=== PATIENT | female | born 1950 | race African-American/Black ===

== ENCOUNTER → 2016-10-03 | Outpatient (CLI) | payer MEDICARE ==
[~2016-10-03] MED LIST: ATOR20TA42 PO; AUGM12TA2 PO; CART240C4 PO; CELL500T PO; COUM5TAB PO; COUM6TAB PO; LABE200T2 PO; LOSA25TA31 PO; MAGN400T PO; POTA-243 PO; PRED5 PO; PROG1CAP PO; SENS60TA PO; TERA10CA3 PO
[2016-10-03 10:45] LABS: AUTOMATED NEUTROPHIL # 4.1 TH/MM3 (1.8-7.7); BASOPHIL % 0.3 % (0.0-2.0); EOSINOPHIL # 0.1 TH/MM3 (0-0.4); EOSINOPHIL % 1.8 % (0.0-4.0); HEMATOCRIT 35.1 % (35.0-46.0); HEMO FLAGS DIFF FINAL; LYMPH % 35.3 % (9.0-44.0); LYMPHOCYTE # 2.8 TH/MM3 (1.0-4.8); MEAN CELL VOLUME 86.3 FL (80.0-100.0); MEAN CORPUSCULAR HEMOGLOBIN 27.7 PG (27.0-34.0); MEAN CORPUSCULAR HGB CONC 32.1 % (32.0-36.0); MONO % 10.6 % (0.0-8.0); PLATELET COUNT 170 TH/MM3 (150-450); RED BLOOD COUNT 4.07 MIL/MM3 (4.00-5.30); RED CELL DISTRIBUTION WIDTH 14.8 % (11.6-17.2); WHITE BLOOD COUNT 7.9 TH/MM3 (4.0-11.0)
[2016-10-03 10:59] LABS: INTERNATIONAL NORMALIZED RATIO 2.7 RATIO; PROTHROMBIN TIME - PATIENT 31.2 SEC (9.8-11.6)
[2016-10-03 11:10] LABS: MICRO ALBUMIN RANDOM URINE RAW 18.9 MG/L (0.0-30.0)
[2016-10-03 11:19] LABS: BICARBONATE 27.8 MEQ/L (21.0-32.0); MAGNESIUM 1.4 MG/DL (1.5-2.5); POTASSIUM 3.7 MEQ/L (3.5-5.1)
[2016-10-03 11:21] LABS: PARATHYROID HORMONE INTACT 170.3 PG/ML (12.4-76.8)
== END ==
LOC: CLAB 09:54
PROVIDERS: ATTEND Nurse Practitioner Acute Care
DX: E55.9 Vitamin D deficiency, unspecified (principal); I48.91 Unspecified atrial fibrillation; N18.3 Chronic kidney disease, stage 3 (moderate); D63.1 Anemia in chronic kidney disease; E83.51 Hypocalcemia; E21.3 Hyperparathyroidism, unspecified; E87.6 Hypokalemia; Z94.0 Kidney transplant status
CPT/HCPCS: 36415; 80048; 80197; 82043; 82652; 83735; 83970; 84100; 85025; 85610